=== PATIENT | female | born 1945 | race African-American/Black ===

== ENCOUNTER 2024-05-20 14:08 | Emergency (ER) | payer MEDICARE, BC ==
[~2024-05-20] VITALS: Ht 152.4 cm; Wt 68.0 kg
[2024-05-20 14:18] VITALS: O2SAT 97
[2024-05-20] MEDS ORDERED: HYDR25SU33 RC (15:29)
== END 2024-05-20 15:48 | disposition home or self-care (01) ==
LOC: ER 14:14
DX: K64.9 Unspecified hemorrhoids (principal); D64.9 Anemia, unspecified; E78.5 Hyperlipidemia, unspecified; E11.9 Type 2 diabetes mellitus without complications; Z79.891 Long term (current) use of opiate analgesic; Z91.040 Latex allergy status; Z91.013 Allergy to seafood
CPT/HCPCS: A4606; A4663